=== PATIENT | male | born 1960 | race Caucasian/White ===

== ENCOUNTER 2019-08-03 05:51 | Inpatient (IN) | payer OTHER ==
[~2019-08-03] VITALS: Ht 170.2 cm; Wt 84.4 kg
[2019-08-03] VITALS (16 sets, daily range): BP systolic 103–129; BP diastolic 37–79
[~2019-08-03 05:51] MED LIST: AVAPRO300 MG ORAL; LEVEMIR FL100 UNIT/1 SUBQ; LEVOTHYROXINE125 MCG ORAL; METFORMIN HCL1000 M1 ORAL; STARLIX60 MG ORAL; VICTOZA 2-0.6 MG/0.1 SUBQ
[2019-08-03] MEDS ORDERED: LR 1000ml 1,000 ML IVLG SCH (06:50)
[2019-08-03] MEDS ORDERED: Acetaminophen (Non formulary) 100 ML IV ONE (07:00)
[2019-08-03] MEDS ORDERED: HYDROcodone/Acetamin 7.5/325 tab ORAL PRN (07:00)
[2019-08-03] MEDS ORDERED: Ketorolac 30mg Inj IV PRN ×2 (07:00)
[2019-08-03] MEDS ORDERED: ceFAZolin sod 1 GM in NS 55 ML IVPB ONE (07:00)
[2019-08-03] MEDS ORDERED: Labetalol 5mg/ml 20ml vial IV PRN (07:00)
[2019-08-03] MEDS ORDERED: DiphenhydrAMINE 50mg/ml Inj IVP PRN (07:00)
[2019-08-03] MEDS ORDERED: HYDROcodone/Acetamin 5/325 tab ORAL PRN (07:00)
[2019-08-03] MEDS ORDERED: Midazolam 2mg/2ml Inj IVP PRN (07:00)
[2019-08-03] MEDS ORDERED: LORazepam Inj 2mg/ml 1ml IV PRN (07:00)
[2019-08-03] MEDS ORDERED: fentaNYL 100 mcg/2 mL IV PRN (07:00)
[2019-08-03] MEDS ORDERED: oxyCODONE HCL/Acetaminophen 5/325mg ORAL PRN (07:00)
[2019-08-03] MEDS ORDERED: Hydromorphone 0.5mg/0.5ml inj IVP PRN (07:00)
[2019-08-03] MEDS ORDERED: Meperidine 50mg/ml Inj(FOR RIGORS ONLY) IVP PRN (07:00)
[2019-08-03] MEDS ORDERED: Atropine Sulfate 0.4mg/ml inj IVP PRN (07:00)
[2019-08-03] MEDS ORDERED: Metoclopramide 10mg/2ml Inj IVP PRN (07:00)
--- NOTE | 2019-08-03 07:04 | Anethesia Preoperative Eval ---
Anesthesia Pre-op PMH/ROS General Date of Evaluation: Aug 03, 2019 Time of Evaluation: 07:24 Anesthesiologist: May ASA Score: ASA 3 Mallampati Score Class I : Soft palate, uvula, fauces, pillars visible Class II: Soft palate, uvula, fauces visible Class III: Soft palate, base of uvula visible Class IV: Only hard plate visible Mallampati Classification: Class II Surgeon: Stacey Diagnosis: Prostate CA Surgical Procedure: Laparoscopic Prostatectomy Anesthesia History: none Family History: no anesthesia problems Allergies: Coded Allergies: No Known Allergies (Unverified , 08/02/19) Medications: see eMAR Patient NPO?: Yes NPO Date: Aug 02, 2019 NPO Time: 2229 Past Medical History Cardiovascular: Reports: HTN Gastrointestinal/Genitourinary: Reports: other - Prostate CA Neurologic/Psychiatric: Reports: depression/anxiety Endocrine: Reports: DM, hypothyroidism Anesthesia Pre-op Phys. Exam Physician Exam Last Vital Signs Date Time Temp Pulse Resp B/P (MAP) Pulse Ox O2 Delivery O2 Flow Rate FiO2 08/03/19 07:01 Room Air 08/03/19 06:41 96.7 72 18 125/68 (87) 97 Constitutional: NAD Neurologic: CN 2-12 intact Cardiovascular: RRR Respiratory: CTA Gastrointestinal: S/NT/ND Airway Exam Mallampati Score: Class II MO: full ROM: full Teeth: missing, intact Anesthesia Pre-op A/P Risk Assessment & Plan Assessment: ASA 3 Plan: GA Status Change Before Surgery: No Pre-Antibiotics Dru grams Ancef IV Given Within 1 Hr of Incision: Yes Time Given: 07:46 Chris Olvera MD Aug 03, 2019 07:04
[2019-08-03] MEDS ORDERED: Rocuronium Bromide 50mg/5ml Inj IV ONE (07:07)
[2019-08-03] MEDS ORDERED: Sodium Chloride 10ml vial INJ ONE (07:11)
[2019-08-03] MEDS ORDERED: Propofol 200mg/20ml IV ONE (07:11)
[2019-08-03] MEDS ORDERED: Lidocaine 1% MPF 10mg/ml 5ml ONE (07:11)
[2019-08-03] MEDS ORDERED: Bupivacaine 0.5% Inj 30 ml vial INJ ONE (07:11)
[2019-08-03] MEDS ORDERED: fentaNYL 100 mcg/2 mL IV ONE ×2 (07:13→08:39)
[2019-08-03] MEDS ORDERED: ProvayBlue 5mg/ml 10ml amp INJ ONE (07:15)
[2019-08-03] MEDS ORDERED: LR 1000ml ONE (07:24)
[2019-08-03] MEDS ORDERED: Sterile Water Irrig 1000ml IRRIG ONE (07:24)
[2019-08-03] MEDS ORDERED: NS Irrig 1000ml ONE (07:24)
[2019-08-03] MEDS ORDERED: Neostigmine 1mg/ml 10ml Inj ONE (07:30)
--- NOTE | 2019-08-03 07:36 | Pre-Procedure Note/Attestation ---
Pre-Procedure Note/Attestation Complete Prior to Procedure Planned Procedure: not applicable Procedure Narrative: laparoscopic radical prostatectomy Indications for Procedure Pre-Operative Diagnosis: prostate cancer Attestation I attest that I discussed the nature of the procedure; its benefits; risks and complications; and alternatives (and the risks and benefits of such alternatives ), prior to the procedure, with the patient (or the patient's legal veterans contact representative). I attest that, if there was a reasonable possibility of needing a blood transfusion, the patient (or the patient's legal veterans contact representative) was given the [facility] standardized written summary, pursuant to the [place] Blood Safety Act ([place] Health and Safety Code # 1645, as amended). I attest that I re-evaluated the patient just prior to the surgery and that there has been no change in the patient's H&P, except as documented below: Juan M Ibarra MD Aug 03, 2019 07:36
[2019-08-03] MEDS ORDERED: NS Irrig 1000ml IRRIG ONE (08:06)
--- NOTE | 2019-08-03 09:20 | NUR ---
CASE MANAGEMENT:REVIEW 58 YR OLD MALE HERE FOR ELECTIVE SURGERY SI:PROSTATE CANCER 96.7 72 18 125/68 97% ON RA IS: TO SURGERY FOR LAPAROSCOPIC RADICAL RETROPUBIC PROSTATECTOMY : CURRENTLY IN SURGERY INTERQUAL CRITERIA MET
[2019-08-03] MEDS ORDERED: Glycopyrrolate 0.2mg/ml 1ml Vial ONE (09:44)
[2019-08-03] MEDS ORDERED: Ketorolac 30mg Inj ONE (09:44)
--- NOTE | 2019-08-03 10:07 | Brief Operative Note ---
Immediate Post Operative Note Operative Note Pre-op Diagnosis: prostate cancer Procedure: Laparoscopic radical prostatectomy Post-op Diagnosis: prostate cancer Post-op Diagnosis: same as pre-op Surgeon: Davis Ibarra Anesthesia: general Specimen: yes Complications: none Condition: stable Fluids: 1000 Estimated Blood Loss: minimal Implant(s) used?: No Juan M Ibarra MD Aug 03, 2019 10:06
--- NOTE | 2019-08-03 10:11 | Immediate Post-Op Evaluation ---
Immediate Post-Op Evalulation Immediate Post-Op Evalulation Procedure: Laparoscopic Radical Prostatectomy Date of Evaluation: Aug 03, 2019 Time of Evaluation: 10:14 IV Fluids: 2100 LR Blood Products: 0 Estimated Blood Loss: 75 Urinary Output: 200 Blood Pressure Systolic: 92 Blood Pressure Diastolic: 54 Pulse Rate: 65 Respiratory Rate: 16 O2 Sat by Pulse Oximetry: 98 Temperature (Fahrenheit): 97.8 Pain Score (1-10): 2 Nausea: No Vomiting: No Complications 0 Patient Status: awake, reacts, patent, extubated, none Hydration Status: adequate Dru grams Ancef IV Given Within 1 Hr of Incision: Yes Time Given: 07:46 Chris Olvera MD Aug 03, 2019 10:11
[2019-08-03] MEDS ORDERED: Ketorolac 30mg Inj IM PRN (10:15)
[2019-08-03 11:03] LABS: ANION GAP 5 mmol/L (5-15); BLOOD UREA NITROGEN 13 mg/dL (7-18); CALCIUM 7.9 MG/DL (8.5-10.1); CARBON DIOXIDE 28 MMOL/L (21-32); CHLORIDE 104 MMOL/L (98-107); CREATININE 1.1 MG/DL (0.55-1.30); POTASSIUM 4.8 MMOL/L (3.5-5.1); SODIUM 137 MMOL/L (136-145)
[2019-08-03 11:11] LABS: BASOPHILS % (AUTO) 0.7 % (0.0-2.0); EOSINOPHILS % (AUTO) 0.8 % (0.0-3.0); HEMATOCRIT 39.1 % (42.0-52.0); HEMOGLOBIN 13.5 G/DL (14.2-18.0); LYMPHOCYTES % (AUTO) 12.7 % (20.0-45.0); MEAN CORPUSCULAR VOLUME 89 FL (80-99); MONOCYTES % (AUTO) 6.7 % (1.0-10.0); NEUTROPHILS % (AUTO) 79.1 % (45.0-75.0); PLATELET COUNT 248 K/UL (150-450); RED BLOOD COUNT 4.41 M/UL (4.70-6.10); RED CELL DISTRIBUTION WIDTH 11.3 % (11.6-14.8); WHITE BLOOD COUNT 15.8 K/UL (4.8-10.8)
--- NOTE | 2019-08-03 11:45 | NUR ---
NURSE NOTES: REC'D FROM PACU SP LAPAROSCOPIC RADICAL RETROPUBIC PROSTATECTOMY. DOZIND BUT AROUSABLE. V/S TAKEN . NO C/O PAIN. IV INFUSING. F/C PATENT AND DRAINING LIGHT RED URINE. IN NO ACUTE DISTRESS.
[2019-08-03] MEDS ORDERED: HYDROmorphone 1mg/ml Carpuject IVP PRN ×2 (12:30)
--- NOTE | 2019-08-03 12:57 | NUR ---
NURSE NOTES: DR STANTON CALLED RE PT'S HOME RECONCILIATION MED LIST. LEFT MESSAGE TO RETURN CALL.
--- NOTE | 2019-08-03 13:17 | NUR ---
*-* NO INSURANCE INFORMATION IN THE BAR *-* . PRECERT REF# [id number] 1DAY LOS CPT 73421 NCM UNASSIGNED IF PT STAY AFTER 1ST DAY [facility] REP TO CALL AND REQUEST CLINICAL PER [place]
[2019-08-03] MEDS: D5 1/2NS w/KCl 20mEq 1,000 ML IV SCH ×2 (13:23→22:54)
[2019-08-03] MEDS ORDERED: ceFAZolin sod 2 GM in D5W 110 ML IV SCH (15:30)
[2019-08-03] MEDS: NovoLOG Insulin Flexpen SUBQ SCH ×2 (17:07→21:06)
--- NOTE | 2019-08-03 17:15 | Operative Note - Dictated ---
DATE OF OPERATION: 08/03/2019 PREOPERATIVE DIAGNOSIS: Prostate cancer. POSTOPERATIVE DIAGNOSIS: Prostate cancer. OPERATION: Laparoscopic radical retropubic prostatectomy. LAND DEVELOPMENT PROJECT MANAGER: Juan M Ibarra M.D. ANESTHESIA: General. FINDINGS: Enlarged prostate. HOURLY ASSOCIATE: Mata Cedeño M.D. INDICATIONS FOR SURGERY: The patient was diagnosed with high-grade prostate cancer. His metastatic workup was negative. Treatment options were explained to him in great length including all the options and all potential complications of surgery. He signed a consent. DESCRIPTION OF OPERATION: He was brought to the operating room, placed in supine position, prepped and draped in standard fashion. Under general anesthesia, Veress needle was placed and pneumoperitoneum was created to 15 mmHg. After that, and 5 trocars two 12s and three 5s were placed in the standard position. It was noted the patient had severe adhesions in the left lower quadrant over the descending and sigmoid colon. Dr. Mata Cedeño was called into the operating room to assist me with the lysis of adhesions. He performed lysis of adhesions using sharp and blunt dissection with electrical seizures. Once the colon was removed cephalad, we gained access to the retrovesical space. Peritoneal lining was opened and seminal vesicles and vas deferens was mobilized from the surrounding adhesions. Vas deferens was transected and fascia was opened. After that dissection carried anteriorly bladder from the pubis. Endopelvic fascia was opened with Harmonic scalpel. Endo-DEMETRIUS was used for dorsal venous complex. Bladder neck sparing technique was used to separate prostate from the bladder. Bladder neck was slightly bigger than normal and was downsized with running 2-0 Vicryl suture. After that, prostate was removed preserving both neurovascular bundles. Anastomosis was created over 20-Swazi Canales catheter using running 2-0 Monocryl suture. Bladder was then copiously irrigated. No evidence of leaks. Estimated blood loss was 50 mL. Canales was left indwelling. Sponge count, instrument count was correct. FloSeal was placed in both neurovascular bundles. The wound was closed with multiple layers of 0-Vicryl for the fascia and subcuticular closure for the skin. The patient tolerated procedure well. No evidence of complications. Juan M Ibarra M.D. DR: Elsa JOB#: [id number] CC:
[2019-08-03] MEDS: Docusate 100mg cap ORAL SCH (17:46)
--- NOTE | 2019-08-03 19:00 | NUR ---
NURSE NOTES: QUIET IN BED. NO APPARENT DISTRESS.
--- NOTE | 2019-08-03 19:09 | NUR ---
HAND-OFF: Report given to NORRIS RODRIGUEZ.
--- NOTE | 2019-08-03 19:31 | NUR ---
NURSE NOTES: Patient awake in bed, alert and oriented x4, no complaint of pain at this time, no respiratory distress noted. Bed in lowest position, lock engaged and alarm on. Will continue to monitor. Family at bedside.
[2019-08-03] MEDS ORDERED: ceFAZolin sod 2 GM in NS 110 ML IV SCH (23:30)
[2019-08-04] VITALS: BP 132/72
--- NOTE | 2019-08-04 00:45 | Operative Note - Dictated ---
DATE OF OPERATION: 08/03/2019 OPERATING SURGEON: Mata Cedeño M.D. CIVIL ENGINEER'S AIDE: Jua nM Ibarra M.D. PREOPERATIVE DIAGNOSIS: Intraabdominal adhesions. POSTOPERATIVE DIAGNOSIS: Intraabdominal adhesions. PROCEDURE PERFORMED: Laparoscopic lysis of adhesions. BACKGROUND: The patient is a 58-year-old male with prostate cancer, who was elected to undergo laparoscopic prostatectomy by urological surgeon, Dr. Juan M Ibarra. Dr. Juan M Ibarra started the procedure as usual by creating pneumoperitoneum and placing 5 mm trocars in the right abdomen and additional 12 mm trocar in the right abdomen. After that, when he placed the camera, he encountered dense adhesions in the pelvic inlet. Dr. Ibarra tried to divide the adhesions, but he encountered difficulty because of the sigmoid colon, omentum, and small bowel were stuck through the anterior abdominal wall precluding safe access to the prostate gland. Probably, the adhesions were a result of the previous inflammatory conditions like diverticulitis. After numerous attempts to develop a safe plane, Dr. Juan M Ibarra decided to call me as a general surgeon to facilitate access to the prostate gland to ensure the safety of passage. I was called to come down to the operating room and I scrubbed and observed the above-mentioned findings. OPERATIVE PROCEDURE: Pneumoperitoneum as above was created by Dr. Juan M Ibarra and two 5 mm trocars were placed in the right abdomen and additional 12 mm trocar. After that, the findings were appreciated and I started the dissection. Using sharp and blunt dissection through the right-sided 5 mm trocar, I was able to take down the adhesions between the omentum and the anterior abdominal wall. The sigmoid colon was found to be densely adherent to the anterior abdominal wall and pelvic inlet. In addition, I found two loops of small bowel densely adhered to the sigmoid colon. Using endoscopic bismark, the adhesions between the sigmoid and the pelvic inlet were sharply taken down. Hemostasis was achieved using Harmonic scalpel. After that, I started to divide the line of Toldt taking care to avoid injury to the ureter, to mobilize the sigmoid colon and to retract it medially. I was able to mobilize the distal part of the sigmoid colon and I was able to reflect the bowel up and open the pelvic inlet. By this maneuver, a safe access to the prostate gland was gained. I again inspected the bowel and there was no injury to the bowel, not to the small and not to the sigmoid. Omentum was again inspected and hemostasis was achieved. By this time, safe access to the prostate gland was gained and the rest of the procedure was performed by Dr. Juan M Ibarra, and he will dictate his report in detail separately. I stood to the end of procedure assisting Dr. Juan M Ibarra. My part of procedure took approximately 45 minutes to achieve complete lysis of adhesions. Mata Cedeño M.D. DR: JUAN JOB#: [id number] CC: JONH
[2019-08-04] MEDS: HYDROcodone/Acetamin 5/325 tab ORAL PRN ×3 (03:34→20:18)
[2019-08-04 04:00] VITALS: BP 124/67
[2019-08-04 06:04] LABS: BASOPHILS % (AUTO) 0.7 % (0.0-2.0); EOSINOPHILS % (AUTO) 0.4 % (0.0-3.0); HEMATOCRIT 39.3 % (42.0-52.0); HEMOGLOBIN 13.6 G/DL (14.2-18.0); LYMPHOCYTES % (AUTO) 12.7 % (20.0-45.0); MEAN CORPUSCULAR VOLUME 89 FL (80-99); MONOCYTES % (AUTO) 10.2 % (1.0-10.0); NEUTROPHILS % (AUTO) 76.1 % (45.0-75.0); PLATELET COUNT 203 K/UL (150-450); RED BLOOD COUNT 4.44 M/UL (4.70-6.10); RED CELL DISTRIBUTION WIDTH 11.2 % (11.6-14.8); WHITE BLOOD COUNT 10.2 K/UL (4.8-10.8)
[2019-08-04 06:28] LABS: ANION GAP 2 mmol/L (5-15); BLOOD UREA NITROGEN 8 mg/dL (7-18); CALCIUM 7.7 MG/DL (8.5-10.1); CARBON DIOXIDE 30 MMOL/L (21-32); CHLORIDE 105 MMOL/L (98-107); CREATININE 0.9 MG/DL (0.55-1.30); POTASSIUM 4.3 MMOL/L (3.5-5.1); SODIUM 137 MMOL/L (136-145)
[2019-08-04] MEDS: NovoLOG Insulin Flexpen SUBQ SCH ×4 (06:50→21:00)
[2019-08-04 08:00] VITALS: BP 124/76
--- NOTE | 2019-08-04 08:04 | NUR ---
NURSE NOTES: Received report from JENNIFER Major. Patient in bed resting, no active s/s cardiac, respiratory distress noticed at this time. Patient AOx4, family member at the bedside. Canales Catheter draining well to gravity, patent, intact. Iv on left hand 20G, asymptomatic, patent, intact. IV fluid running as prescribed rate. Bed in lowest position, side rails upx3, call light within reach. Will continue to monitor.
--- NOTE | 2019-08-04 08:15 | NUR ---
HAND-OFF: Report given to JENNIFER Hernández.
[2019-08-04] MEDS: Docusate 100mg cap ORAL SCH ×2 (08:56→17:29)
[2019-08-04] MEDS: Irbesartan 150mg tablet ORAL SCH (08:56)
[2019-08-04] MEDS: metFORMIN 500mg tab ORAL SCH ×2 (08:56→17:30)
[2019-08-04] MEDS: D5 1/2NS w/KCl 20mEq 1,000 ML IV SCH (09:00)
--- NOTE | 2019-08-04 10:12 | NUR ---
NURSE NOTES: Per Dr. Ibarra, advance patient's diet as tolerated. Per patient, patient on diabetic diet no modification needed. No s/s nausea and vomiting, patient tolerating PO water intake. Order noted, entered, carried out.
--- NOTE | 2019-08-04 10:18 | NUR ---
*-* NO INSURANCE INFORMATION IN THE BAR UNABLE TO SEND CLINICALS OR REVIEWS *-*
--- NOTE | 2019-08-04 11:00 | NUR ---
NURSE NOTES: Patient able to ambulate hallway, denies dizziness, ambulate with steady gait.
[2019-08-04 12:00] VITALS: BP 112/69
--- NOTE | 2019-08-04 15:58 | NUR ---
P.T Note: late entry 1000 P.T evaluation complete. Based on P.T evaluation, pt is baseline independent in all areas of ADL/functional mobilities and gait/locomotion. Current functional status does not warrant skilled P.T service at this .Encouraged pt OOB activities VS bedrest unless otherwise ordered. Pt and verbalized understanding. DC P.T services. Thank you for this referral.
[2019-08-04 16:00] VITALS: BP 125/72
--- NOTE | 2019-08-04 16:43 | NUR ---
CASE MANAGEMENT:REVIEW 08/04/19 Si: POD #1 LAPAROSCOPIC RADICAL RETROPUBIC PROSTATECTOMY 98.5 95 15 125/72 98% ON 2L/NC H/H-13.6/39.3 IS: METFORMIN PO BID SYNTHROID PO QD STARLIX PO TID AC NORCO PO Q4HRS PRN : MED/SURG STATUS 3 EAST
--- NOTE | 2019-08-04 17:21 | 48 Hour Post Anesthesia Eval ---
Post Anesthesia Evaluation Procedure: Laparoscopic Radical Prostatectomy Date of Evaluation: Aug 04, 2019 Time of Evaluation: 17:20 Blood Pressure Systolic: 125 0: 76 Pulse Rate: 68 Respiratory Rate: 20 Temperature (Fahrenheit): 97.6 O2 Sat by Pulse Oximetry: 98 Airway: patent Nausea: No Vomiting: No Pain Intensity: 3 Hydration Status: adequate Cardiopulmonary Status: stable Mental Status/LOC: patient returned to baseline Follow-up Care/Observations: n/a Post-Anesthesia Complications: none Follow-up care needed: N/A Akhil Portillo MD Aug 04, 2019 17:21
--- NOTE | 2019-08-04 19:33 | NUR ---
HAND-OFF: Report given to JENNIFER Rees.
[2019-08-04 20:00] VITALS: BP 138/77
--- NOTE | 2019-08-04 20:00 | NUR ---
NURSE NOTES: received pt in bed. AAO X 4 room air. Canales catheter via gravity. no acute distress noted this time. call light within reach. bed is the lowest position. will continue to provide plan of care.
[2019-08-05] VITALS: BP 115/65
[2019-08-05] MEDS: HYDROcodone/Acetamin 5/325 tab ORAL PRN (02:24)
[2019-08-05 04:00] VITALS: BP 132/76
--- NOTE | 2019-08-05 05:00 | Progress Note ---
DATE: 08/04/2019 INTERNAL MEDICINE PROGRESS NOTE Covered for Dr. Massey SUBJECTIVE: The patient was seen and evaluated postop. Discussed with nursing staff. He is sound asleep, lying flat, in no respiratory distress approximately 10 p.m. PHYSICAL EXAMINATION: LUNGS: Bilateral breath sounds. No wheezing. CARDIAC: Regular rhythm and rate. Normal S1 and S2 with no murmur. ABDOMEN: Soft. EXTREMITIES: No edema. He is asleep through most of the exam. Per nursing staff, pain control is adequate. He will continue on DVT prophylaxis. He had some diarrhea and we will consider stool studies if it persists. Glucose monitoring is ongoing and glucose control appears to be stable at this time. Results of prostate biopsy we will follow. He continues to have an indwelling Canales catheter in this postoperative period. Luis Miguel Banks M.D. DR: ANTONI JOB#: [id number] CC:
[2019-08-05] MEDS: NovoLOG Insulin Flexpen SUBQ SCH (05:50)
--- NOTE | 2019-08-05 07:51 | NUR ---
HAND-OFF: Report given to Paige Schaefer RN.
[2019-08-05] MEDS ORDERED: COLACE100 MG ORAL (07:52)
[2019-08-05] MEDS ORDERED: NORCO 5-325 TA1 EACH ORAL (07:52)
[2019-08-05] MEDS ORDERED: LEVAQUIN500 MG ORAL (07:52)
--- NOTE | 2019-08-05 07:55 | NUR ---
NURSE NOTES: Received report from JENNIFER Rees. Rounding done with outgoing nurse. Pt a/o x 4, in bed. is at bedside. Pt stat "I need stool softner. Will be given as MD ordered. Bed in lowest position, call light within reach. Will continue to monitor.
[2019-08-05 08:00] VITALS: BP 139/76
[2019-08-05] MEDS: Docusate 100mg cap ORAL SCH (08:04)
[2019-08-05 08:44] VITALS: BP 139/76
[2019-08-05] MEDS: metFORMIN 500mg tab ORAL SCH (08:44)
[2019-08-05] MEDS: Irbesartan 150mg tablet ORAL SCH (08:44)
[2019-08-05] MEDS ORDERED: Tubing IV Secondary IV ONE ×2 (09:54)
[2019-08-05] MEDS ORDERED: NS Irrig 1000ml ONE (09:54)
--- NOTE | 2019-08-05 09:55 | NUR ---
NURSE NOTES: Discharge instruction was give including written prescription. All belongings checked and given to pt. Removed IV access/ arm band. Pt a/o x 4. Pt discharged with his /daughter.
--- NOTE | 2019-08-05 15:15 | Consultation ---
DATE OF CONSULTATION: 08/05/2019 INTERNAL MEDICINE CONSULTATION CONSULTING PHYSICIAN: Zenon Massey M.D. HISTORY OF PRESENT ILLNESS: This is a 58-year-old male, who is postop day #2, status post prostatectomy. At this point, the patient states he is doing well. The patient has a previous history of hypertension and diabetes mellitus. His postoperative care was unremarkable with a Canales in place. HOME MEDICATIONS: Metformin, irbesartan, aspirin, Starlix, Victoza, Levemir, vitamin D3. PAST MEDICAL HISTORY: Insulin-dependent diabetes mellitus. ALLERGIES: None. REVIEW OF SYSTEMS: Denies any headaches, hematemesis, melena, hematochezia, night sweats, or weight loss. PHYSICAL EXAMINATION: GENERAL: Reveals a 58-year-old male. HEENT: Unremarkable. LUNGS: Clear breath sounds bilaterally. ABDOMEN: Soft. EXTREMITIES: . LABORATORY DATA: Lab testing is unremarkable preoperatively. Today, his hemoglobin is 13.6, creatinine is 0.9. IMPRESSION: 1. Postop day #2, status post retropubic prostatectomy. 2. Hypertension. 3. Diabetes mellitus. DISCUSSION: The patient is doing well. He is tolerating a diet. We will discharge home. The Canales catheter in place. We will prescribe [place], Levaquin, and Colace. Outpatient follow up with Dr. Ibarra. Zenon Massey M.D. DR: MUKUND JOB#: [id number] CC:
--- NOTE | 2019-08-06 22:00 | Discharge Summary ---
Discharge Summary Discharge Summary _ DATE OF ADMISSION: 08/03/2019 DATE OF DISCHARGE: 08/05/2019 DISCHARGED BY: Dr. Juan M Ibarra SURGEON: Dr. Juan M Ibarra and Dr. Mata Cedeño ADMINISTRATIVE TECH: Dr. Feliciano Banks BRIEF HOSPITAL COURSE: Patient is a 58-year-old male with history of prostate cancer, who was admitted on 08/03/2019 and underwent laparoscopic prostatectomy by Dr. Ibarra. During the procedure, patient was noted to have severe adhesions in the left lower quadrant over the descending and sigmoid colon. Dr. Cedeño was called to assist with the lysis of adhesions. He tolerated procedure well. Surgery was uneventful. Post-operatively, patient was admitted for post-op care. He was continued with Canales catheter. He was placed on SCDs for DVT prophylaxis and was encouraged use of incentive spirometer. Patient was given pain management. IV antibiotic continued. He was seen by PT. Diet was advanced. Home meds resumed. Patient was ambulating well with good pain control and was tolerating diet. Patient was eventually cleared for discharge home. FINAL DIAGNOSES: Prostate cancer s/p Laparoscopic radical retropubic prostatectomy (Refer to Operative Report) DISCHARGE DISPOSITION: Patient was discharged home. DISCHARGE MEDICATIONS: Refer to Medication Reconciliation Sheet. DISCHARGE INSTRUCTIONS: Post-op instructions given. Follow-up in a week. I have been assigned to complete a DC summary on this account, I was not involved with the patient's management.--MICHAEL Perez Jacqueline Robles NP Aug 06, 2019 22:00
--- NOTE | 2019-08-08 14:23 | NUR ---
*-* INSURANCE *-* [facility] CM: NORA F: [phone] F:: [phone]
== END 2019-08-05 09:55 | disposition home or self-care (01) | DRG 708 ==
LOC: SDSOVERFLO 05:51 → 3E 11:47
PROC: 0DNU4ZZ Release Omentum, Percutaneous Endoscopic Approach (ICD-10-PCS; principal; 2019-08-03 07:30)
PROC: 0VT04ZZ Resection of Prostate, Percutaneous Endoscopic Approach (ICD-10-PCS; principal; 2019-08-03 07:30)
PROC: 0DN84ZZ Release Small Intestine, Percutaneous Endoscopic Approach (ICD-10-PCS; principal; 2019-08-03 07:30)
PROC: 0DNN4ZZ Release Sigmoid Colon, Percutaneous Endoscopic Approach (ICD-10-PCS; principal; 2019-08-03 07:30)
DX: C61 Malignant neoplasm of prostate (principal); I10 Essential (primary) hypertension; E11.9 Type 2 diabetes mellitus without complications; E03.9 Hypothyroidism, unspecified; F41.8 Other specified anxiety disorders; K66.0 Peritoneal adhesions (postprocedural) (postinfection); Z79.82 Long term (current) use of aspirin; Z79.4 Long term (current) use of insulin
CPT/HCPCS: 36415; 80048; 82962; 85025; 86850; 86900; 86901; 87081; 94003; 94150; J1815; J2405; J2710